=== PATIENT | male | born 1935 | race African-American/Black ===

== ENCOUNTER 2025-09-04 15:38 | Inpatient (IN) | payer OTHER, MEDICAID ==
[~2025-09-04] VITALS: Ht 180.3 cm; Wt 58.1 kg
[2025-09-04 15:50] VITALS: O2SAT 98
[2025-09-04] MEDS: SODIUM CHLORIDE 0.9% (SEPSIS BOLUS) IV ONE (16:39)
[2025-09-04] MEDS: PIPERACILLIN/TAZO 3.375G/50ML 50 ML IV ONE (16:39)
[2025-09-04 16:47] LABS: BASOPHILS % 0.1 % (0.0-2.0); EOSINOPHILS % 0.1 % (0.0-5.0); HEMATOCRIT. 42.5 % (42.0-52.0); HEMOGLOBIN. 14.0 g/dL (14.0-18.0); LYMPHOCYTES % 14.7 % (20.0-50.0); MEAN PLATELET VOLUME 10.1 fl (7.4-10.4); MONOCYTES % 10.4 % (2.0-8.0); NEUTROPHILS % 74.7 % (40.0-76.0); PLATELET 232 x1000/uL (130-400); RED BLOOD CELL COUNT 5.00 mill/uL (4.7-6.1); RED CELL DISTRIBUTION WIDTH 15.3 % (11.6-14.6)
[2025-09-04 16:57] LABS: INR 1.0
[2025-09-04 17:03] LABS: CREATININE 1.5 mg/dL (0.6-1.3); UREA NITROGEN BLOOD 35 mg/dL (9-23)
[2025-09-04 17:05] LABS: ASPARTATE AMINOTRANSFERASE 41 IU/L (<34); BILIRUBIN DIRECT 0.5 mg/dL (<=3.0); BILIRUBIN TOTAL 1.3 mg/dL (0.1-1.0)
[2025-09-04 17:06] LABS: PROTEIN TOTAL 8.2 g/dL (6.0-8.3)
[2025-09-04] MEDS: VANCOMYCIN 1G PREMIX 200 ML IV ONE (17:17)
[2025-09-04 17:26] LABS: TROPONIN I HIGH SENSITIVITY 200 ng/L (3.0-53)
[2025-09-04 18:42] LABS: CLARITY URINE TURBID (CLEAR); COLOR URINE DARK YELLOW (YELLOW); GLUCOSE URINE NEGATIVE (NEGATIVE); KETONES URINE 1+ (NEGATIVE); LEUKOCYTE ESTERASE URINE 2+ (NEGATIVE); NITRITE URINE NEGATIVE (NEGATIVE); OCCULT BLOOD URINE 1+ (NEGATIVE); PH URINE 5.0 (4.5-8.0); PROTEIN URINE 2+ (NEGATIVE); SPECIFIC GRAVITY URINE 1.020 (1.005-1.030); UROBILINOGEN URINE 1.0 E.U./dL (0.2-1.0)
[2025-09-04 19:08] LABS: BACTERIA URINE 2+; RBC URINE 0-2 /hpf (0-2); SQUAMOUS EPITHELIAL CELL URINE 1+ /lpf (RARE/1+); WBC URINE 15-25 /hpf (0-2)
[2025-09-04] MEDS ORDERED: ACETAMINOPHEN 650MG/20.3ML UDC GT PRN ×2 (21:15)
[2025-09-04] MEDS ORDERED: IPRATROPIUM/ALBUTEROL 0.5-3(2.5)MG/3ML NEB HHN PRN (21:15)
[2025-09-04] MEDS: SODIUM CHLORIDE 0.9% 500 ML IV ONE (21:45)
[2025-09-04 22:01] LABS: TROPONIN I HIGH SENSITIVITY 244 ng/L (3.0-53)
[2025-09-04 22:21] LABS: PHOSPHORUS 3.0 mg/dL (2.5-4.9)
[2025-09-04 23:32] VITALS: BP 111/68; PULSE 70; RESP 18; TEMP 36.7516
[2025-09-05] VITALS (7 sets, daily range): BP systolic 102–147; BP diastolic 50–72; PULSE 47–82; RESP 18; TEMP 35.7–36.7; O2SAT 9–99
[2025-09-05] MEDS ORDERED: PIPERACILLIN/TAZOBACTAM 3.375 G in DEXTROSE 5% WATER 50 ML IV SCH (00:30)
[2025-09-05] MEDS: ENOXAPARIN 40MG/0.4ML SYR SUBCUT SCH (00:34)
[2025-09-05] MEDS: VANCOMYCIN 750MG/150ML (BAXTER) IV SCH (00:35)
[2025-09-05] MEDS: PIPERACILLIN/TAZO 3.375G/50ML IV SCH (00:36)
[2025-09-05] MEDS ORDERED: LEVO25TA7 PO (05:15)
[2025-09-05 05:29] LABS: *AMPHETAMINES SCREEN URINE NEGATIVE (NEGATIVE); *BARBITURATES SCREEN URINE NEGATIVE (NEGATIVE); *BENZODIAZEPINES SCREEN URINE NEGATIVE (NEGATIVE); *COCAINE SCREEN URINE NEGATIVE (NEGATIVE); METHADONE URINE SCREEN NEGATIVE (NEGATIVE)
[2025-09-05 05:30] LABS: CANNABINOID URINE SCREEN PRESUMPTIVE POSITIVE (NEGATIVE); ECSTASY MDMA SCREEN URINE NEGATIVE (NEGATIVE); OPIATES URINE SCREEN NEGATIVE (NEGATIVE); PHENCYCLIDINE URINE SCREEN NEGATIVE (NEGATIVE)
[2025-09-05] MEDS: SODIUM CHLORIDE 0.9% 1,000 ML IV SCH (05:39)
[2025-09-05] MEDS: AZITHROMYCIN 500MG/250ML 250 ML IV SCH (06:08)
[2025-09-05 08:20] LABS: BASOPHILS % 0.4 % (0.0-2.0); EOSINOPHILS % 1.2 % (0.0-5.0); HEMATOCRIT. 35.0 % (42.0-52.0); HEMOGLOBIN. 11.5 g/dL (14.0-18.0); LYMPHOCYTES % 17.1 % (20.0-50.0); MEAN PLATELET VOLUME 9.9 fl (7.4-10.4); MONOCYTES % 10.5 % (2.0-8.0); NEUTROPHILS % 70.8 % (40.0-76.0); PLATELET 178 x1000/uL (130-400); RED BLOOD CELL COUNT 4.13 mill/uL (4.7-6.1); RED CELL DISTRIBUTION WIDTH 15.8 % (11.6-14.6)
[2025-09-05 08:38] LABS: CREATININE 0.8 mg/dL (0.6-1.3)
[2025-09-05 08:39] LABS: LDL CHOLESTEROL 64 mg/dL (5-100); TRIGLYCERIDE 120 mg/dL (0-150); UREA NITROGEN BLOOD 26 mg/dL (9-23)
[2025-09-05 08:41] LABS: T4 FREE 1.04 ng/dL (0.89-1.76)
[2025-09-05] MEDS: PANTOPRAZOLE SODIUM 40 MG/VIAL IV SCH (09:07)
[2025-09-05] MEDS: VANCOMYCIN 1GM PMX (XELLIA) 200 ML IV SCH (22:29)
[2025-09-06] VITALS (7 sets, daily range): BP systolic 134–150; BP diastolic 68–88; PULSE 50–108; RESP 18–20; TEMP 36.2–36.8; O2SAT 96–98
[2025-09-06 06:03] LABS: CREATININE 0.6 mg/dL (0.6-1.3); UREA NITROGEN BLOOD 17 mg/dL (9-23)
[2025-09-06 06:07] LABS: BASOPHILS % 0.4 % (0.0-2.0); EOSINOPHILS % 1.4 % (0.0-5.0); HEMATOCRIT. 36.1 % (42.0-52.0); HEMOGLOBIN. 11.8 g/dL (14.0-18.0); LYMPHOCYTES % 22.4 % (20.0-50.0); MEAN PLATELET VOLUME 10.3 fl (7.4-10.4); MONOCYTES % 10.2 % (2.0-8.0); NEUTROPHILS % 65.6 % (40.0-76.0); PLATELET 180 x1000/uL (130-400); RED BLOOD CELL COUNT 4.24 mill/uL (4.7-6.1); RED CELL DISTRIBUTION WIDTH 15.3 % (11.6-14.6)
[2025-09-06] MEDS ORDERED: LEVO25TA7 MT (10:14)
[2025-09-06] MEDS ORDERED: AMOX1TAB15 MT (10:14)
[2025-09-06] MEDS ORDERED: POTASSIUM CHLORIDE 20MEQ TABLET SR PO SCH (11:00)
[2025-09-06] MEDS: LEVOTHYROXINE SODIUM 25MCG TABLET PO SCH (15:23)
[2025-09-06] MEDS: VANCOMYCIN 750MG PREMIX 150 ML IV SCH (19:08)
[2025-09-06] MEDS: POTASSIUM CHLORIDE 20MEQ TABLET SR PO SCH (19:23)
== END 2025-09-06 20:06 | disposition home or self-care (01) | DRG 871 ==
LOC: ER 15:38 → 8WST 18:53 → EDBEDREQTM 18:55 → EDBEDREQ 18:55 → ENRESERV 20:11 → ENRESERVTM 20:38 → CANRESERV 20:38 → ENRESERV 21:58
PROVIDERS: ADMIT Internal Medicine; ATTEND Internal Medicine
DX: A41.9 Sepsis, unspecified organism (principal); I21.A1 Myocardial infarction type 2; J69.0 Pneumonitis due to inhalation of food and vomit; J18.9 Pneumonia, unspecified organism; N17.9 Acute kidney failure, unspecified; N39.0 Urinary tract infection, site not specified; F03.90 Unspecified dementia, unspecified severity, without behavioral disturbance, psychotic disturbance, mood disturbance, and anxiety; M62.50 Muscle wasting and atrophy, not elsewhere classified, unspecified site; I44.4 Left anterior fascicular block; Z74.01 Bed confinement status; Z79.899 Other long term (current) drug therapy; Z86.12 Personal history of poliomyelitis; Z93.1 Gastrostomy status; Z20.822 Contact with and (suspected) exposure to COVID-19
CPT/HCPCS: 36415; 71045; 80048; 80061; 80076; 80202; 80305; 81003; 83605; 83735; 84100; 84145; 84439; 84443; 84484; 85025; 87426; 93005; 96365; 96368; 96375; 99291; A4606; J0456; J1650; J2470; J2543; J3373; J7030